=== PATIENT | female | born 1980 | race Caucasian/White ===

== ENCOUNTER → 2024-06-12 09:36 | Outpatient (REF) | payer OTHER, SELFPAY | LOC: RAD 09:36 | PROVIDERS: ATTENDING PHYSICIAN Nurse Practitioner Family; FAMILY PHYSICIAN Internal Medicine | DX: R11.2 Nausea with vomiting, unspecified (principal) | CPT/HCPCS: 74246 ==

== ENCOUNTER 2025-07-15 14:23 | Emergency (ER) | payer OTHER, SELFPAY ==
[2025-07-15 14:25] VITALS: BP 227/123
--- NOTE | 2025-07-15 14:53 | ED.GENMED ---
History of Present Illness
General
Chief Complaint: Abnormal Lab Value
Source: patient
Exam Limitations: none
Time Seen by Provider: 07/15/25 14:31
History of Present Illness
History of Present Illness:
45yoF with a history of hypertension, obesity, and GERD presenting for abnormal outpatient lab work. Patient has been following with Dr. Richards at [facility] for anemia. Patient states this all started back in August of this year when she was
admitted at [facility] for an elbow infection. She required a blood transfusion during that hospital stay. Her blood work last month showed a hemoglobin of 10.1. She was started on Venofer infusions on 07/05 and has had 3 infusions so far. She
had repeat blood work done yesterday and hemoglobin was 6.7. She was sent to the ED for evaluation. Patient denies any hematochezia, melena, or vaginal bleeding. She reports intermittent dizziness and fatigue which has been ongoing since before
she started the iron infusions.
Past History
Past History
ED Past Medical History: GERD (Gastritis, possible gastroparesis), Other (migraines), Other (Cervical disc disease) and Other (non-obstruction kidney stone, ovarian cyst)
ED Past Surgical History: Orthopedic (Anterior cervical discectomy C5-C6/T6-T7, with cervical fusion, plates and screws in anterior cages(07/29/12))
Social History
Tobacco: Non-smoker
Alcohol: Occasional
Drug: None
Personal: Single
Living: with family
Employment: Employed ([employer])
Family History
Family History: Other (Noncontributory)
Phy Exam
General Physical Exam
General Presentation: well appearing and no apparent distress
General Skin: warm and dry
General Habitus: normal
General Mental: alert
ENT Exam
ENT Exam: normocephalic
Pulmonary Exam
Pulmonary Exam: no respiratory distress
Neurological Exam
Neurological Exam: alert
[place] Coma Scale
Eye Opening: Spontaneous
Verbal Response: Oriented
Motor Response: Obeys Commands
GCS Total Score: 15
Skin Exam
Skin Exam: normal color and warm/dry
Psychiatric Exam
Psychiatric Exam: normal mood/affect
Course
Orders/Labs/Results
Orders:
Orders
07/15/25 14:56
Type And Crossmatch [Type+Screen] Urgent
Complete Blood Count/With Diff Urgent
Comprehensive Metabolic Panel Urgent
Abnormal Lab Results
07/15/25
14:56
RBC 5.68 H 10^6/uL
(4.20-5.40)
Hgb 11.1 L g/dL
(12.0-16.0)
MCV 73.1 L fL
(81.0-99.0)
MCH 19.5 L pg
(27.0-31.0)
MCHC 26.7 L g/dL
(33.0-37.0)
RDW 23.6 H %
(11.5-14.5)
Carbon Dioxide 31 H mmol/L
(22-30)
Glucose 114 H mg/dl
(70-99)
07/15/25 14:56
07/15/25 14:56
Vital Signs
Initial and Last Documented VS:
Initial Vital Signs
Temp Pulse Resp BP Pulse Ox
98.2 F 91 16 227/123 99
07/15/25 14:25 07/15/25 14:25 07/15/25 14:25 07/15/25 14:25 07/15/25 14:25
Last Documented Vital Signs
Temp Pulse Resp BP Pulse Ox
99.1 F 81 19 162/97 99
07/15/25 15:01 07/15/25 15:30 07/15/25 15:30 07/15/25 15:01 07/15/25 15:30
MDM/Problems Addressed
Differential Diagnosis Includes:
45yoF presenting for a hemoglobin of 6.7 on outpatient labs yesterday. Has been following with [facility] for anemia and recently started iron infusions. Hemoglobin 10.1 last month. Denies active bleeding. Patient hypertensive with otherwise stable
vitals. She is well appearing in no distress. Differential diagnosis includes but is not limited to: lab error, iron deficiency anemia, hemolysis, anemia of chronic disease, GI bleed
Repeat labs obtained and hemoglobin is 11.1. Upon further questioning, patient reports that the staff at the infusion center were having a difficult time getting blood work yesterday and multiple attempts had to be made. Patient states there was
only a small amount of blood in the vial yesterday and it appeared diluted so suspect this was a lab error. 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
*Pulse Oximetry
SaO2: 99
Oxygen Mode of Delivery: Room air
Patient hypoxic: no
*Critical Care Note
Total Time (30-74mins, 75-104mins- exclusive of procedures): Not Applicable
ED Attending Note
-
Portions of this chart may have been created with voice recognition software.� Occasional wrong word or��sound alike� substitutions may have occurred due to the inherent limitations of voice recognition software.
Discharge Plan
Departure
Patient Disposition: Home (Routine Discharge)
Date of Disposition: 07/15/25
Time of Disposition: 15:43
Patient with high blood pressure during this ER visit?: Yes
Discharge Problem:
Anemia
Instructions: Anemia in adults, possibly from low iron - ED (DC)
Prescriptions:
No Action
lansoprazole 15 mg Capsule,Delayed Release(Dr/Ec)
15 mg PO DAILY
[id number] [Excedrin Extra Strength] 250-250-65 mg Tablet
1 tab PO DAILYPRN PRN (Reason: headaches)
oxycodone 10 mg Tablet
10 mg PO Q6HPRN PRN (Reason: severe pains)
Referrals:
Tylor King MD [Family Provider, Internal Medicine]
Activity Restrictions/Additional Instructions:
Hemoglobin was 11.1 today.
Please follow-up with your red mud thickener operator. Return to the ER with any new or worsening symptoms.
Interventions
Interventions:
*Risk Screen - Suicide Last Done: 07/15/25 14:25
*General Assessment Last Done: 07/15/25 15:02
*Neglect/Abuse Screening Last Done: 07/15/25 14:25
*ED- Fall Risk Assessment Last Done: 07/15/25 15:02
*ED COVID-19 Vaccine History Last Done: 07/15/25 15:02
*ED Influenza Vaccine History Last Done: 07/15/25 15:02
*Nursing Disposition Last Done: 07/15/25 15:53
Discharge Date and Time
Discharge Date/Time: 07/15/25 15:54
Print Language: [id number]
[2025-07-15 14:59] VITALS: BMI 51.0
[2025-07-15 15:01] VITALS: BP 162/97
[2025-07-15 15:06] LABS: Hematocrit 41.5 % (37.0-47.0); Hemoglobin 11.1 g/dL (12.0-16.0); Mean Corp Hgb Conc. 26.7 g/dL (33.0-37.0); Mean Corpuscular Volume 73.1 fL (81.0-99.0); Nucleated Red Blood Cells % 0 %; Platelet Count 257 10^3/uL (130-400); Red Cell Dist. Width 23.6 % (11.5-14.5)
[2025-07-15 15:22] LABS: ALT (SGPT) 31 U/L (0-35); AST (SGOT) 29 U/L (14-36); Albumin 4.6 g/dl (3.5-5.0); Alkaline Phosphatase 67 U/L (38-126); Blood Urea Nitrogen 10 mg/dl (7-17); Calcium 9.3 mg/dl (8.4-10.2); Carbon Dioxide 31 mmol/L (22-30); Chloride 101 mmol/L (98-107); Estimated Creatinine Clearance > 125 ml/min; Glucose 114 mg/dl (70-99); Potassium 4.0 mmol/L (3.5-5.1); Sodium 137 mmol/L (135-145); Total Protein 7.7 g/dl (6.3-8.2); eGFR > 60.00
== END 2025-07-15 15:54 | disposition home or self-care (01) ==
LOC: EMR 14:23
PROVIDERS: Physician Assistant; EMERGENCY PHYSICIAN Student in an Organized Health Care Education/Training Program; FAMILY PHYSICIAN Internal Medicine
DX: D64.9 Anemia, unspecified (principal); I10 Essential (primary) hypertension; Z98.1 Arthrodesis status
CPT/HCPCS: 99283; 80053; 85025; 86850; 86900; 86901